=== PATIENT | female | born 1955 | race Caucasian/White ===

== ENCOUNTER 2017-10-22 09:26 | Emergency (ER) | payer OTHER ==
[~2017-10-22] VITALS: Ht 165.1 cm; Wt 136.1 kg
[~2017-10-22 09:26] MED LIST: ABAT250V; ACET325 PO; AMOCLA875 PO; AMOX500 PO; ASPI81EC PO; Aspir 8181 MG PO; BACL10 PO; BELPHEER; Bentyl20 MG; CALCAVITD PO; CEPH500 PO; CIPR500; CLIN300 PO; CLON.1; CLON.2 PO; CLON.5; CLON.5 PO; CLON1; CLON1 PO; CLON2; CLON2 PO; CLONAZEPAM; CYCL10 PO; Cranberry300 MG PO; DIPASPER; DIPH50 PO; DOCU100 PO; DOXE150 PO; DOXE25 PO; DOXE75C PO; DOXY100 PO; ESOM20 PO; FAMO20 PO; FERRIC SULFATE1 GM; FLUT110OIA IH; Fish Oil300 MG PO; GABA300 PO; GLIP2.5ER; GLIP2.5ER PO; GUAI100SY PO; HYDACE10A; HYDACE10B; HYDACE10B PO; HYDACE25S PR; HYDACE5 PO; HYDACE5325 PO; HYDMOR2 PO; HYDPAM25 PO; HYDPAM50; HYDR1TAB94 PO; HYOS.125; Hair, Skin & N1 EACH PO; IBUP600 PO; INSUASPI SC; INSULANPEN SC; IRON150C PO; LACT10SY PO; LEVEMIR FL100 UNIT/1; LIRA0.6P; LISI10; LISI10 PO; LISI20 PO; LISI5 PO; LORA1 PO; MAGCIT300 PO; MEDICAL MARIJUANA; MELA3 PO; MELO7.5 PO; META800 PO; METF500 PO; METH5; METO10 PO; METO25 PO; METR500 PO; MOM PO; Milk Of Ma400 MG/5 M PO; NAPR500 PO; NAPR500EC PO; NORCO; Nicotine Gum4 MG BC; Norco 10-325 T1 EACH PO; Norco 5-325 Ta1 EACH PO; OLAN7.5; OMEP20ER PO; OMEPRAZOLE MAGN20 MG PO; ONDA4 PO; ONDA4ODT SL; ONDA8 PO; OXYACE5T PO; OXYC1TAB11 PO; OXYGEN; PENVK500 PO; PROACE100 PO; PROC10 PO; PROC5 PO; PROM25 PO; PROM25S PR; PROM50S PR; QUDEXY XR25 MG PO; QUET100; QUET100 PO; QUET200; QUET200 PO; QUET300; QUET300 PO; RANI150 PO; RISP3; RXPROM25 PO; SACC250C PO; SERT50 PO; SIMV10 PO; STOOL SOFTENER100 MG PO; SULTRIEL PO; TRAACE PO; TRAM50 PO; TRAZ100; TRAZ100 PO; TRAZ50 PO; TRAZODONE PO; ULTRA-LIGHT RO1 EACH MC; VENL75; VENL75ER; VICODIN PO; VITAMIN D31000 UNIT PO; Zofran8 MG PO; [UNRECOGNIZED DRUG - OTHER]; [UNRECOGNIZED DRUG - OTHER]
[2017-10-22 09:48] LABS: Source, Urine Clean Catch
[2017-10-22 09:54] LABS: Bilirubin, Urine Neg (Neg); Blood, Urine Neg (Neg); Glucose Qualitative, Urine Neg (Neg); Ketones, Urine Neg (Neg); Leukocyte Esterase, Urine 1+ (Neg); Nitrite, Urine Pos (Neg); Protein, Urine Neg (Neg); Urobilinogen, Urine NORM (Normal)
[2017-10-22 10:18] LABS: Appearance, Urine Clear (Clear); Color, Urine Yellow (P-Yellow)
[2017-10-22 10:19] LABS: Bacteria Many /hpf; Red Blood Cells, Urine Not Seen /hpf (0-2); Squamous Epithelial Cells Few /hpf (Few)
[2017-10-22] MEDS ORDERED: Novolog Fl100 UNIT/1 (10:40)
[2017-10-22] MEDS ORDERED: DOXE50 PO (10:41)
[2017-10-22 10:46] LABS: BASOPHILS ABSOLUTE AUTO 0.08 K/mm3 (0.00-0.23); BASOPHILS PERCENT AUTO 1 % (0-2); EOSINOPHILS ABSOLUTE AUTO 0.24 K/mm3 (0.00-0.68); EOSINOPHILS PERCENT AUTO 2 % (0-6); IMMATURE GRAN ABSOLUTE AUTO 0.04 K/mm3 (0.00-0.10); IMMATURE GRAN PERCENT AUTO 0 % (0-1); LYMPHOCYTES ABSOLUTE AUTO 1.69 K/mm3 (0.84-5.20); LYMPHOCYTES PERCENT AUTO 16 % (21-46); MONOCYTES ABSOLUTE AUTO 0.46 K/mm3 (0.16-1.47); MONOCYTES PERCENT AUTO 4 % (4-13); Mean Corpuscular HGB 27.3 pg (26.0-34.0); Mean Corpuscular HGB Conc 30.3 g/dL (31.5-36.5); Mean Corpuscular Volume 90 fL (80-100); NEUTROPHILS PERCENT AUTO 77 % (41-73); RDW Coefficient Variation 15.1 % (11.7-14.2); RDW Standard Deviation 50.6 fL (35.1-46.3); Red Blood Cell Count 3.66 M/mm3 (3.80-5.20); White Blood Cell Count 10.71 K/mm3 (4.00-11.30)
[2017-10-22] MEDS ORDERED: BACL10 PO (10:53)
[2017-10-22] MEDS ORDERED: METO25ER PO (10:54)
[2017-10-22] MEDS ORDERED: Omeprazole20 M1 (10:55)
[2017-10-22] MEDS ORDERED: METF500 PO (10:56)
[2017-10-22] MEDS ORDERED: ASPI81CH PO (10:57)
[2017-10-22] MEDS ORDERED: BENTYL10 MG PO (10:58)
[2017-10-22] MEDS ORDERED: MELA3 PO (10:58)
[2017-10-22] MEDS ORDERED: Cranberry300 MG PO (10:59)
[2017-10-22 11:03] LABS: Alanine Aminotransfer (ALT/SGP 21 U/L (12-78); Albumin, Blood 3.3 g/dL (3.4-5.0); Albumin/Globulin Ratio 0.7 (0.8-1.8); Alk Phos 181 U/L (50-136); Anion Gap 7 mmol/L (6-16); Aspartate Aminotrans (AST/SGOT 37 U/L (12-37); Bilirubin, Total 0.4 mg/dL (0.1-1.0); Blood Urea Nitrogen 16 mg/dL (8-24); Bun/Creatinine Ratio 27.4 (12.0-20.0); CO2, Blood 26 mmol/L (21-32); Calcium, Blood 8.6 mg/dL (8.5-10.1); Chloride, Blood 103 mmol/L (98-108); Creatinine, Blood 0.58 mg/dL (0.40-1.00); Globulin, Blood 4.6 g/dL (2.2-4.0); Glomerular Filtration Rate >60 (60-); Glucose, Blood 202 mg/dL (70-99); Potassium, Blood 4.3 mmol/L (3.5-5.5); Sodium, Blood 136 mmol/L (136-145); Total Protein, Blood 7.9 g/dL (6.4-8.2)
[2017-10-22 11:04] LABS: Mean Platelet Volume 10.7 fL (9.1-12.4); Platelet Count 230 K/mm3 (150-400)
[2017-10-22] MEDS ORDERED: Cipro500 MG PO (11:47)
== END 2017-10-22 13:20 | disposition home or self-care (01) ==
LOC: ER 09:26
PROVIDERS: Physician Assistant
DX: N12 Tubulo-interstitial nephritis, not specified as acute or chronic (principal); E11.9 Type 2 diabetes mellitus without complications; F41.9 Anxiety disorder, unspecified; J45.909 Unspecified asthma, uncomplicated; Z88.2 Allergy status to sulfonamides; Z88.8 Allergy status to other drugs, medicaments and biological substances; Z79.899 Other long term (current) drug therapy; Z79.4 Long term (current) use of insulin; Z86.73 Personal history of transient ischemic attack (TIA), and cerebral infarction without residual deficits
CPT/HCPCS: 36415; 80053; 81001; 85025; 87077; 87086; 87186; 96374; 96375; 99284; J2405; J3010

== ENCOUNTER 2018-03-22 10:41 | Emergency (ER) | payer OTHER ==
[~2018-03-22] VITALS: Ht 160 cm; Wt 136.1 kg
[~2018-03-22 10:41] MED LIST changes: +ASPI81CH PO; +BENTYL10 MG PO; +Cipro500 MG PO; +DOXE50 PO; +METO25ER PO; +Novolog Fl100 UNIT/1; +Omeprazole20 M1
[2018-03-22] MEDS ORDERED: NYST100000 SS (11:44)
[2018-03-22] MEDS ORDERED: Seroquel Xr150 MG PO (12:03)
[2018-03-22] MEDS ORDERED: DULO60 PO (12:19)
[2018-03-22] MEDS ORDERED: INSU100I6 SC (12:20)
== END 2018-03-22 12:43 | disposition home or self-care (01) ==
LOC: ER 10:41
DX: B35.6 Tinea cruris (principal); B37.2 Candidiasis of skin and nail; E11.9 Type 2 diabetes mellitus without complications; Z86.73 Personal history of transient ischemic attack (TIA), and cerebral infarction without residual deficits; G43.909 Migraine, unspecified, not intractable, without status migrainosus; Z88.5 Allergy status to narcotic agent; Z88.2 Allergy status to sulfonamides; Z88.8 Allergy status to other drugs, medicaments and biological substances; Z79.899 Other long term (current) drug therapy; Z79.891 Long term (current) use of opiate analgesic; Z79.2 Long term (current) use of antibiotics; Z79.4 Long term (current) use of insulin; Z79.82 Long term (current) use of aspirin; Z79.84 Long term (current) use of oral hypoglycemic drugs
CPT/HCPCS: 36415; 82947; 96361; 96374; 99283-25; J3010; J7120

== ENCOUNTER → 2018-09-15 | Outpatient (CLI) | payer OTHER ==
[~2018-09-15] MED LIST changes: +DULO60 PO; +INSU100I6 SC; +NYST100000 SS; +Seroquel Xr150 MG PO
[2018-09-15 15:55] LABS: BASOPHILS ABSOLUTE AUTO 0.07 K/mm3 (0.00-0.23); BASOPHILS PERCENT AUTO 1 % (0-2); EOSINOPHILS ABSOLUTE AUTO 0.32 K/mm3 (0.00-0.68); EOSINOPHILS PERCENT AUTO 4 % (0-6); Hematocrit 26.6 % (33.0-51.0); IMMATURE GRAN ABSOLUTE AUTO 0.03 K/mm3 (0.00-0.10); IMMATURE GRAN PERCENT AUTO 0 % (0-1); LYMPHOCYTES ABSOLUTE AUTO 2.04 K/mm3 (0.84-5.20); LYMPHOCYTES PERCENT AUTO 25 % (21-46); MONOCYTES ABSOLUTE AUTO 0.46 K/mm3 (0.16-1.47); MONOCYTES PERCENT AUTO 6 % (4-13); Mean Corpuscular HGB 24.2 pg (26.0-34.0); Mean Corpuscular HGB Conc 30.1 g/dL (31.5-36.5); Mean Corpuscular Volume 81 fL (80-100); Mean Platelet Volume 9.3 fL (9.1-12.4); NEUTROPHILS ABSOLUTE AUTO 5.39 K/mm3 (1.96-9.15); NEUTROPHILS PERCENT AUTO 65 % (41-73); Platelet Count 473 K/mm3 (150-400); RDW Coefficient Variation 15.4 % (11.7-14.2); RDW Standard Deviation 45.1 fL (35.1-46.3); White Blood Cell Count 8.31 K/mm3 (4.00-11.30)
[2018-09-15 16:13] LABS: Alanine Aminotransfer (ALT/SGP 15 U/L (12-78); Albumin, Blood 3.3 g/dL (3.4-5.0); Albumin/Globulin Ratio 0.7 (0.8-1.8); Alk Phos 153 U/L (40-126); Anion Gap 10 mmol/L (6-16); Aspartate Aminotrans (AST/SGOT 19 U/L (12-37); Bilirubin, Total 0.2 mg/dL (0.1-1.0); Blood Urea Nitrogen 12 mg/dL (8-24); Bun/Creatinine Ratio 15.2 (12.0-20.0); CO2, Blood 26 mmol/L (21-32); Calcium, Blood 8.9 mg/dL (8.5-10.1); Chloride, Blood 101 mmol/L (98-108); Creatinine, Blood 0.79 mg/dL (0.40-1.00); Globulin, Blood 4.5 g/dL (2.2-4.0); Glomerular Filtration Rate >60 (60-); Glucose, Blood 209 mg/dL (70-99); Potassium, Blood 4.4 mmol/L (3.5-5.5); Sodium, Blood 137 mmol/L (136-145); Total Protein, Blood 7.8 g/dL (6.4-8.2)
== END ==
LOC: LAB SHORT 15:52 → LAB EV 15:52
PROVIDERS: Emergency Medicine
DX: R42 Dizziness and giddiness (principal)
CPT/HCPCS: 80053; 85025

== ENCOUNTER 2018-10-16 16:43 | Inpatient (IN) | payer OTHER ==
[~2018-10-16] VITALS: Ht 167.6 cm; Wt 133.4 kg
[~2018-10-16 16:43] MED LIST changes: -ASPI81CH PO; +Aspirin EC81 MG PO; -BENTYL10 MG PO; -DOXE50 PO; +Dicyclomine HCl20 MG PO; -GABA300 PO; +Lopressor 25 mg25 MG PO; -METO25ER PO; +Metformin HCl500 MG PO; -SIMV10 PO; +Zocor20 MG PO
[2018-10-16 17:44] LABS: BASOPHILS ABSOLUTE AUTO 0.07 K/mm3 (0.00-0.23); BASOPHILS PERCENT AUTO 0 % (0-2); EOSINOPHILS PERCENT AUTO 1 % (0-6); Hematocrit 27.2 % (33.0-51.0); Hemoglobin 7.7 g/dL (11.5-16.0); IMMATURE GRAN ABSOLUTE AUTO 0.26 K/mm3 (0.00-0.10); IMMATURE GRAN PERCENT AUTO 1 % (0-1); LYMPHOCYTES ABSOLUTE AUTO 0.94 K/mm3 (0.84-5.20); LYMPHOCYTES PERCENT AUTO 5 % (21-46); MONOCYTES PERCENT AUTO 5 % (4-13); Mean Corpuscular HGB 23.3 pg (26.0-34.0); Mean Corpuscular HGB Conc 28.3 g/dL (31.5-36.5); Mean Corpuscular Volume 82 fL (80-100); Mean Platelet Volume 9.5 fL (9.1-12.4); NEUTROPHILS PERCENT AUTO 89 % (41-73); Platelet Count 528 K/mm3 (150-400); RDW Coefficient Variation 15.6 % (11.7-14.2); RDW Standard Deviation 46.7 fL (35.1-46.3); Red Blood Cell Count 3.31 M/mm3 (3.80-5.20); White Blood Cell Count 20.17 K/mm3 (4.00-11.30)
[2018-10-16 18:07] LABS: Alanine Aminotransfer (ALT/SGP 16 U/L (12-78); Albumin, Blood 3.4 g/dL (3.4-5.0); Albumin/Globulin Ratio 0.7 (0.8-1.8); Alk Phos 153 U/L (50-136); Anion Gap 7 mmol/L (6-16); Aspartate Aminotrans (AST/SGOT 17 U/L (12-37); Bilirubin, Total 0.4 mg/dL (0.1-1.0); Blood Urea Nitrogen 12 mg/dL (8-24); Bun/Creatinine Ratio 21.8 (12.0-20.0); CO2, Blood 23 mmol/L (21-32); Calcium, Blood 9.1 mg/dL (8.5-10.1); Chloride, Blood 102 mmol/L (98-108); Creatinine, Blood 0.55 mg/dL (0.40-1.00); Globulin, Blood 4.7 g/dL (2.2-4.0); Glomerular Filtration Rate >60 (60-); Glucose, Blood 376 mg/dL (70-99); Potassium, Blood 4.6 mmol/L (3.5-5.5); Sodium, Blood 132 mmol/L (136-145); Total Protein, Blood 8.1 g/dL (6.4-8.2)
[2018-10-16 18:24] LABS: Free Thyroxine 1.17 ng/dL (0.70-1.60); Thyroid Stimulating Hormone 0.576 uIU/mL (0.360-4.800); Triiodothyronine, Free 2.74 pg/mL (2.18-3.98)
[2018-10-16 18:37] LABS: Source, Urine Catheter
[2018-10-16 18:41] LABS: Bilirubin, Urine Neg (Neg); Blood, Urine Neg (Neg); Glucose Qualitative, Urine 4+ (Neg); Ketones, Urine Neg (Neg); Leukocyte Esterase, Urine Neg (Neg); Nitrite, Urine Neg (Neg); Protein, Urine 2+ (Neg); Urobilinogen, Urine NORM (Normal); pH, Urine 6.5 (5.0-8.0)
[2018-10-16 19:19] LABS: Appearance, Urine Clear (Clear); Color, Urine Pale Yellow (P-Yellow)
[2018-10-16 19:25] LABS: Bacteria Rare /hpf; Red Blood Cells, Urine Not Seen /hpf (0-2); Squamous Epithelial Cells Mod /hpf (Few); White Blood Cells, Urine Rare /hpf (0-5)
[2018-10-16 21:37] LABS: Influenza A Negative (NEGATIVE); Influenza B Negative (NEGATIVE)
[2018-10-16] MEDS ORDERED: INSULANPEN SC (22:31)
[2018-10-16 22:33] LABS: U Amphetamine Screen Not Detected; U Barbituate Screen Not Detected; U Benzodiazapine Screen Not Detected; U Buprenorphine Screen Not Detected; U Cannabinoids Screen DETECTED; U Cocaine Screen Not Detected; U Methadone Screen Not Detected; U Methamphetamine Screen Not Detected; U Opiates Screen Not Detected; U Oxycodone Screen Not Detected; U Phencyclidine Screen Not Detected; U Propoxyphene Screen Not Detected
[2018-10-16] MEDS ORDERED: GABA600 PO (23:04)
[2018-10-16] MEDS ORDERED: Doxepin HCl100 MG PO (23:05)
[2018-10-16] MEDS ORDERED: IBUP800 PO (23:06)
[2018-10-16] MEDS ORDERED: Benadryl25 MG PO (23:08)
[2018-10-16] MEDS ORDERED: Valerian Root500 MG PO (23:11)
--- NOTE | 2018-10-17 06:06 | NUR ---
[facility]; Patient arrived to unit at 0530hr via stretcher, accompanied by ED nurse + staff. Alert, oriented to self, confused to place, time, reason for admission. Responds appropriately to questions, follows commands but makes non-sensical statements "warm my eyes", "why you have a bike ride". C/o pain "everywhere" tender/jumpy to touch, but appears comfortable at rest. IV to rt upper chest patent and intact, infusing NS with 20meq KCL. New IV placed at this time to WILL. Harris cath patent and intact, draining clear yellow urine. Will continue to monitor for pain, comfort, safety.
[2018-10-17 07:02] LABS: Hematocrit 23.7 % (33.0-51.0); Hemoglobin 6.9 g/dL (11.5-16.0); Mean Corpuscular HGB 23.5 pg (26.0-34.0); Mean Corpuscular HGB Conc 29.1 g/dL (31.5-36.5); Mean Corpuscular Volume 81 fL (80-100); Mean Platelet Volume 9.5 fL (9.1-12.4); Platelet Count 514 K/mm3 (150-400); RDW Coefficient Variation 15.4 % (11.7-14.2); RDW Standard Deviation 45.3 fL (35.1-46.3); Red Blood Cell Count 2.93 M/mm3 (3.80-5.20); White Blood Cell Count 16.35 K/mm3 (4.00-11.30)
[2018-10-17 07:21] LABS: Alanine Aminotransfer (ALT/SGP 15 U/L (12-78); Albumin, Blood 3.1 g/dL (3.4-5.0); Albumin/Globulin Ratio 0.7 (0.8-1.8); Alk Phos 123 U/L (50-136); Anion Gap 8 mmol/L (6-16); Aspartate Aminotrans (AST/SGOT 10 U/L (12-37); Bilirubin, Total 0.6 mg/dL (0.1-1.0); Blood Urea Nitrogen 10 mg/dL (8-24); Bun/Creatinine Ratio 18.2 (12.0-20.0); CO2, Blood 24 mmol/L (21-32); Calcium, Blood 8.3 mg/dL (8.5-10.1); Chloride, Blood 106 mmol/L (98-108); Creatinine, Blood 0.55 mg/dL (0.40-1.00); Globulin, Blood 4.2 g/dL (2.2-4.0); Glomerular Filtration Rate >60 (60-); Glucose, Blood 222 mg/dL (70-99); Magnesium, Blood 1.7 mg/dL (1.6-2.4); Potassium, Blood 3.8 mmol/L (3.5-5.5); Sodium, Blood 138 mmol/L (136-145); Total Protein, Blood 7.3 g/dL (6.4-8.2)
[2018-10-17 09:06] LABS: Hematocrit 23.3 % (33.0-51.0); Hemoglobin 6.7 g/dL (11.5-16.0); Mean Corpuscular HGB 23.5 pg (26.0-34.0); Mean Corpuscular HGB Conc 28.8 g/dL (31.5-36.5); Mean Corpuscular Volume 82 fL (80-100); Mean Platelet Volume 10.1 fL (9.1-12.4); Platelet Count 458 K/mm3 (150-400); RDW Coefficient Variation 15.6 % (11.7-14.2); RDW Standard Deviation 46.1 fL (35.1-46.3); Red Blood Cell Count 2.85 M/mm3 (3.80-5.20)
[2018-10-17 11:25] LABS: International Normalized Ratio 1.19; Prothrombin Time Results 12.4 Sec (9.7-11.5)
--- NOTE | 2018-10-17 14:35 | NUR ---
Assumed Care: Assumed care of pt at approx 0700. VSS. In no apparent sign of distress. Pt is experiencing expressive aphasia - Dr. Tate aware. No facial droop noted and no symptoms of uneven strength to extremities at this time. PEARRL. Pt receiving lactulose enema this AM, but will ask to switch to PO as pt is able to tolerate PO intake at this time and is following directions. Pt c/o bilat shoulder pain, and pt mom Grace called and states that the pt has a recent hx of torn rotator cuff, but was unable to state for sure which shoulder. When Dr. Tate in to see pt, he states that he is no longer concerned for any potential meningitis, so will DC the LP. Discussed possible need to repeat head CT to r/o further TIA development, but Dr. Tate will order this if needed. Pt is currently resting in bed with call light within reach. Denies any further questions, complaints or requests at this time. Will continue to monitor.
[2018-10-17 14:42] LABS: Hemoglobin 7.4 g/dL (11.5-16.0)
--- NOTE | 2018-10-17 15:26 | NUR ---
CARE OF PT ASSUMED AT 1400. PT AWAKE AND ALERT. ORIENTED TO SELF AND FOLLOWINF DIRECTIONS. PT DESPLAYS BOTH RECEPTIVE AND EXPRESSIVE APHAGIA. PT SHARES HER FRUSTRATION WITH INABILTY TO SAY WHAT SHE IS THINKING, SHE ALSO COMPLAINS THAT SHE IS HAVING A DIFFICULT TIME THINKING OF WHAT SHE WHOULD LIKE TO SAY. IT TAKES MULTIPLE REPETITIONS OF SAME QUESTION AND ALSO GIVING PT SEVERAL MINUTES TO PROCESS QUESTION BEFORE SHE IS ABLE TO ANSWER MOST QUESTIONS. 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 SHE WAS UNABLE TO COME UP WITH THE YEAR OR TOWN, AND TOOK HER SOME TIME TO STATE WITH WHOM SHE LIVES WITH. SHE ALSO HAD A DIFFICULT TIME ANSWERING QUESTIONS ABOUT HER PAST MEDICAL HISTORY. MODIFIED LEAD CLINICAL RESEARCH COORDINATOR STRENGTH WAS EQUAL AND STRONG( 5/5). LOWER EXT STRENGTH WAS ALSO 5/5. PT WAS TRANSFERED BACK TO BED FROM CHAIR USING LIFT. PT WAS GIVEN FULL BED BATH AND FOUND INCONTINENT OF STOOL. SCD'S WERE PLACED. BILAT HANDS ARE EDEMATOUS WITH SOME BRUISING; POSSIBLY FROM LAB STICKS. PT C/O PAIN TO HANDS, HANDS ELEVATED ON PILLOWS. PT STATED THAT SHE HAS A HISTORY OF BILATERAL ROTATOR CUFF TEARS. PT C/O PAIN TO BILATERAL SHOULDERS W REDUCED ROM. LIDOCAINE PATCHES TO SHOULDERS BILAT. BLOOD TRANSFUSION COMPLETED JUST PRIOR TO ASSUMING CARE, PT MICHAEL WELL; LASIX 10MG IVP GIVEN ORDERED.
--- NOTE | 2018-10-17 16:07 | NUR ---
PT AWOKE FROM SLEEP SCREAMING AND THRASHING IN BED WITH PANIC ATTACK. PT SCREAMING HELP ME, I CANT GET UP. PT DIAPHORETIC FROM THRASHING. PT CONFUSED AND WAS SOMEWHAT EASY TO RE-DIRECT/ORIENT/CALM. PT HAS NO MEMORY OF RECENTLY BEING UP IN CHAIR AND HAVING BEDBATH. PT AWAKE AND CALM NOW.
--- NOTE | 2018-10-17 18:17 | NUR ---
PT ASSISTED WITH MEAL. PT RELUCTANT TO USE ARMS TO EAT. ALTHOUGH HER REACH IS WEAK, SHE WAS ABLE TO REACH HER MOUTH. PT ASSISTED WITH HER MEAL AND GIVEN HER ROLL TO EAT WITH SUPERVISON. PT STARTING TO BECOME MORE CLEAR COGNITIVELY. 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 PT CHILD LIKE, ASKING "WHAT'S THAT" ENTHUSIASTICALLY ABOUT MOST RANDOM ITEMS FOUND IN THE ROOM.
--- NOTE | 2018-10-17 19:50 | NUR ---
SIGNIFICANT COGNITIVE IMPROVEMNT NOTED IN THIS PT BETWEEN 1430 AND 1800. PT ABLE TO HOLD MORE FLUID CONVERSATION. MEMORY/RECALL IMPROVED, CONVERSTAION MORE APPROPRIATE WITH LESS CONFUSED STATEMENTS. FAMILY IN AT 1850. NIGHT RN GIVEN REPORT.
[2018-10-18] MEDS ORDERED: QUET100 PO (01:56)
--- NOTE | 2018-10-18 02:02 | NUR ---
PT INCREASED ANXIOUSNESS T/O NOC. PT AT START OF SHIFT VERBALIZED CONCERN OF NOT HAVING HER SLEEPING MEDICATIONS AND NOT BEING ABLE TO SLEEP. PT HAS NOT HAD HER SEROQUEL SINCE THE MORNING OF THE . PT STATED TAKES 150mg IN THE MORNING AND 300mg AT NIGHT. PT HAS BEEN A+O T/O NOC AND HAS BEEN USING CALL LIGHT VERY FREQUENTLY WITH SEVERAL REQUESTS AND THEN CALLING TO REVOKE PREVIOUS REQUESTS. PT REQUEST SNACK BUT NOT WANTING WHAT IS AVAILABLE. PT DID DRINK SOME MILK. PT TRIED SUGAR FREE PUDDING BUT GAGGED APPARENTLY FROM THE TEXTURE. PT IMPROVING ON FINDING HER WORDS. FAMILY HAD STATED THAT PT DOESN'T EVER KNOW DATE OR MONTH. CALL TO HOSPITALIST-SEROQUEL 300mg X1 DOSE NOW ORDERED. PT EXPRESSES APPRECIATION.
--- NOTE | 2018-10-18 03:27 | NUR ---
SLEEP APNEA. PT FELL ASLEEP. SECONDS OF SLEEP APNEA NOTED WITH SATS DROPPING TO 86%. PT AWAKENED EASILY TO RN AT BEDSIDE. PT STATED DOES WEAR CPAP NIGHTLY. MIRLANDE RT JUST HAPPENED TO BE NEAR PT ROOM AND OVERHEARD CONVERSATION. PT STATED DOES WANT TO WEAR CPAP AND MASK AT HOME COVERS NOSE AND MOUTH. MIRLANDE RT SETTING PT UP WITH CPAP. CURRENT SATS 99% WHILE PT AWAKE.
--- NOTE | 2018-10-18 04:40 | NUR ---
EXPRESSIVE APHASIA: PT WITH IMPROVED BUT CONTINUES EXPRESSIVE APHASIA. PT WITH SEVERAL CALLS REGARDING CPAP AND, "TUBING FALLING OFF". PT WITNESSED PULLING TUBE. REMOVED CPAP WITH MINUTES LATER PT CALLING TO HAVE IT PUT BACK ON. PT FINALLY WAS ABLE TO STATE THAT THE MASK WAS TOO TIGHT. LOOSENED MASK AND REPOSITIONED PT. PT HAS BEEN SLEEPING SINCE. VSS.
--- NOTE | 2018-10-18 07:22 | NUR ---
ASSUMED CARE: PT RESTING IN BED, REMOVED CPAP. VSS AT THIS TIME. NO ACUTE DISTRESS NOTED AT THIS TIME.
[2018-10-18 08:40] LABS: BASOPHILS ABSOLUTE AUTO 0.09 K/mm3 (0.00-0.23); BASOPHILS PERCENT AUTO 1 % (0-2); EOSINOPHILS ABSOLUTE AUTO 0.22 K/mm3 (0.00-0.68); EOSINOPHILS PERCENT AUTO 2 % (0-6); Hematocrit 25.4 % (33.0-51.0); Hemoglobin 7.3 g/dL (11.5-16.0); IMMATURE GRAN ABSOLUTE AUTO 0.25 K/mm3 (0.00-0.10); IMMATURE GRAN PERCENT AUTO 3 % (0-1); LYMPHOCYTES ABSOLUTE AUTO 1.75 K/mm3 (0.84-5.20); LYMPHOCYTES PERCENT AUTO 17 % (21-46); MONOCYTES ABSOLUTE AUTO 0.81 K/mm3 (0.16-1.47); MONOCYTES PERCENT AUTO 8 % (4-13); Mean Corpuscular HGB 23.7 pg (26.0-34.0); Mean Corpuscular HGB Conc 28.7 g/dL (31.5-36.5); Mean Corpuscular Volume 83 fL (80-100); Mean Platelet Volume 9.6 fL (9.1-12.4); NEUTROPHILS ABSOLUTE AUTO 7.02 K/mm3 (1.96-9.15); NEUTROPHILS PERCENT AUTO 69 % (41-73); Platelet Count 479 K/mm3 (150-400); RDW Coefficient Variation 15.6 % (11.7-14.2); RDW Standard Deviation 47.2 fL (35.1-46.3); Red Blood Cell Count 3.08 M/mm3 (3.80-5.20); White Blood Cell Count 10.14 K/mm3 (4.00-11.30)
[2018-10-18 09:00] LABS: Vancomycin, Trough 12.1 ug/mL (5.0-10.0)
[2018-10-18 09:05] LABS: Alanine Aminotransfer (ALT/SGP 10 U/L (12-78); Albumin, Blood 2.7 g/dL (3.4-5.0); Albumin/Globulin Ratio 0.6 (0.8-1.8); Alk Phos 112 U/L (50-136); Anion Gap 8 mmol/L (6-16); Aspartate Aminotrans (AST/SGOT 10 U/L (12-37); Bilirubin, Total 0.3 mg/dL (0.1-1.0); Blood Urea Nitrogen 10 mg/dL (8-24); Bun/Creatinine Ratio 21.4 (12.0-20.0); CO2, Blood 23 mmol/L (21-32); Calcium, Blood 8.5 mg/dL (8.5-10.1); Chloride, Blood 108 mmol/L (98-108); Creatinine, Blood 0.47 mg/dL (0.40-1.00); Globulin, Blood 4.4 g/dL (2.2-4.0); Glomerular Filtration Rate >60 (60-); Glucose, Blood 248 mg/dL (70-99); Potassium, Blood 4.2 mmol/L (3.5-5.5); Sodium, Blood 139 mmol/L (136-145); Total Protein, Blood 7.1 g/dL (6.4-8.2)
--- NOTE | 2018-10-18 10:10 | NUR ---
REPORT GIVEN TO SANDRA YANES. PT CURRENTLY WORKING WITH PHYSICAL THERAPY AT THIS TIME
--- NOTE | 2018-10-18 10:15 | NUR ---
ASSUMED CARE: REPORT RECEIVED FROM MAISHA Juarez RN. ASSUMED CARE OF THIS PT AT APPROX 1000. PT IS WORKING W/ PHYS THERAPY, UP TO CHAIR. MEDS PER EMAR FOR NAUSEA. WILL CONTINUE TO MONITOR & UPDATE NEEDED.
[2018-10-18] MEDS ORDERED: HUMALOG KW200 UNIT/1 SC (15:27)
[2018-10-18] MEDS ORDERED: LIDOCAINE 4% K1 EACH (15:28)
[2018-10-18] MEDS ORDERED: AMOCLA500 PO (15:29)
[2018-10-18] MEDS ORDERED: ONDA4ODT MM (15:30)
[2018-10-18] MEDS ORDERED: SACC250C (15:31)
--- NOTE | 2018-10-18 16:14 | NUR ---
DISCHARGE TO HOME: D/C TEACHING COMPLETE, PT & HER SON, JENY, DENY FURTHER QUESTIONS AT THAT TIME. MEDS HAVE BEEN CALLED TO [facility] PER PT REQUEST. D/C PACKET & ALL PT BELONGINGS HAVE BEEN TAKEN OUT BY PT's SON. THIS RN TOOK PT OUT OF UNIT VIA WC AT APPROX 1605. PIV x3 REMOVED.
== END 2018-10-18 16:05 | disposition home or self-care (01) | DRG 871 ==
LOC: ER 16:43 → ICUW 22:50 → ERHOLD 22:50 → ICUW 10-17 04:57
PROVIDERS: Emergency Medicine; Family Medicine; Nurse Practitioner Acute Care; Pharmacist; ADMIT Hospitalist
PROC: 00JU3ZZ Inspection of Spinal Canal, Percutaneous Approach (ICD-10-PCS; principal; 2018-10-16)
PROC: 30233N1 Transfusion of Nonautologous Red Blood Cells into Peripheral Vein, Percutaneous Approach (ICD-10-PCS; 2018-10-16)
DX: A41.9 Sepsis, unspecified organism (principal); J96.00 Acute respiratory failure, unspecified whether with hypoxia or hypercapnia; Z68.42 Body mass index [BMI] 45.0-49.9, adult; E87.2 Acidosis; K72.90 Hepatic failure, unspecified without coma; R65.20 Severe sepsis without septic shock; F12.129 Cannabis abuse with intoxication, unspecified; E66.01 Morbid (severe) obesity due to excess calories; F41.9 Anxiety disorder, unspecified; J45.909 Unspecified asthma, uncomplicated; R21 Rash and other nonspecific skin eruption; Z86.73 Personal history of transient ischemic attack (TIA), and cerebral infarction without residual deficits; K58.9 Irritable bowel syndrome, unspecified; M79.7 Fibromyalgia; Z79.4 Long term (current) use of insulin; E11.65 Type 2 diabetes mellitus with hyperglycemia; D64.9 Anemia, unspecified
CPT/HCPCS: 36415; 36430; 51702; 62270; 70450; 71045; 74177; 80053; 80202; 81001; 82140; 82947; 83605; 83735; 84439; 84443; 84481; 84550; 85014; 85018; 85025; 85027; 85610; 85730; 86850; 86900; 86901; 86923; 87040; 87804; 90686; 93005; 93010; 94660; 96361-59; 96365-59; 96366-59; 96367-59; 96375-59; 97161; 97530; 99285-25; C9113; J0290; J0696; J1644; J1940; J2060; J2270; J2310; J2405; J3370; J3480; J7030; J7040; J7050; P9016; Q9967

== ENCOUNTER → 2021-12-13 | Outpatient (CLI) | payer OTHER ==
[~2021-12-13] MED LIST changes: +AMOCLA500 PO; +Benadryl25 MG PO; +Doxepin HCl100 MG PO; +Ferrous Sulfat325 M2 PO; +GABA600 PO; +HUMALOG KW200 UNIT/1 SC; +IBUP800 PO; +LIDOCAINE 4% K1 EACH; +NOVOLOG FL100 UNIT/1; +ONDA4ODT MM; +SACC250C; +Valerian Root500 MG PO
== END | disposition home or self-care (01) ==
LOC: LAB SHORT 17:04
DX: L98.8 Other specified disorders of the skin and subcutaneous tissue (principal)
CPT/HCPCS: 87220

== ENCOUNTER → 2023-07-09 | Outpatient (CLI) | payer OTHER ==
[~2023-07-09] MED LIST changes: +FURO20 PO; +HYDROCODONE-AC1 EA10 PO; +K-TAB ER20 ME1 PO
== END ==
LOC: LAB 17:31 → LAB SHORT 17:31
DX: B35.3 Tinea pedis (principal); L60.2 Onychogryphosis; B35.1 Tinea unguium
CPT/HCPCS: 87220